=== PATIENT | female | born 1930 | race Caucasian/White ===

== ENCOUNTER 2019-04-30 10:53 | Outpatient (CLI) | payer OTHER | END 2019-04-30 11:00 | disposition home or self-care (01) | LOC: MRD 10:53 | DX: S62.316A Displaced fracture of base of fifth metacarpal bone, right hand, initial encounter for closed fracture (principal); M19.041 Primary osteoarthritis, right hand; X58.XXXA Exposure to other specified factors, initial encounter; Y93.89 Activity, other specified; Y92.89 Other specified places as the place of occurrence of the external cause; Y99.8 Other external cause status | CPT/HCPCS: 73060; 73130 ==